=== PATIENT | male | born 1985 | race Hispanic/Latino ===

== ENCOUNTER 2016-09-03 12:31 | Emergency (ER) | payer OTHER ==
[~2016-09-03] VITALS: Ht 185.4 cm; Wt 70.9 kg
[2016-09-03 12:35] VITALS: BP 143/91; RESP 16; O2SAT 98
--- NOTE | 2016-09-03 13:21 | ED.REPORT ---
HPI-General Illness Peds Date of Service Sep 03, 2016 ED Provider: Damon Carlos MD 31 year old male presents to the ER complaining of a foreign body sensation in his throat onset this morning before work. He had cereal for breakfast, but reports that the sensation did not occur until some time after eating. Patient suspects that it is a piece of glass from a chipped mug. He states that he attempted to clear the object by eating chips and gargling water without relief. A coworker noticed that his voice sounded different and encouraged him to seek care. Patient is able to eat and drink without difficulty, but feels as though the foreign body is changing position. He was seen at urgent care earlier today where he received x-rays that came back negative. Nursing Notes Stated Complaint: POSS OBJECT STUCK IN THROAT Chief Complaint: ENT & Mouth Nursing Notes Reviewed: Yes Allergies: Coded Allergies: No Known Allergies (Unverified , 09/03/16) General Time Seen by MD: 12:57 Chief Complaint Other (Foreign Body in Throat) Hx Obtained from: Patient Arrived by: Walk-in Sudden in Onset?: No Onset Occurred: 5 - 8 hours ago Symptom Duration: Since onset Pertinent Negative: Pt denies other symptoms Similar Sx Previous: No Past Medical History Past Medical History None reported Smoking History Unknown if Ever Smoker Ambulatory Status Ambulatory Status: Independent Review of Systems Full Review of Systems Constitutional: Denies: Chills, Fever Ears / Nose / Throat: Reports: Throat pain (Foreign Body Sensation), Denies: Nasal congestion Respiratory: Denies: Irregular breathing, Shortness of breath GI: Denies: Abdominal pain, Nausea, Vomiting Complete sys rev & neg: except as marked. Physical Exam Initial Vital Signs Vital Signs (First) Date Time Temp Pulse Resp B/P Pulse Ox O2 Delivery O2 Flow Rate FiO2 09/03/16 12:35 36.2 104 16 143/91 98 Room Air Initial VS: Reviewed Head / Eyes: Atraumatic, Normocephalic Neck: Supple, Non-tender, Full range of motion Abdomen / GI: Soft, Non-tender, No guarding, No rebound, No distention Extremities: Vascular intact, Neuro intact, No swelling, No tenderness Skin: Warm, Dry, No cyanosis Neurologic: Alert, Oriented, Nonfocal General / Constitutional: Awake, Alert, Well appearing, Well developed, Well hydrated, Well nourished ENT: Airway patent, Mucous membranes moist, Pharynx NL Respiratory / Chest: Breath sounds NL, Breath sounds = bilat, No respiratory distress, No rales, No rhonchi, No wheezing Cardiovascular: Heart rate NL, Heart sounds NL, Peripheral circulation NL Re-Eval/Medical Decision Med Decision/Clinical Course 31-year-old male with foreign body sensation in esophagus after eating Cheerios this morning. He has no dysphagia. His cast with ENT who recommended sending over to the clinic one half block away for evaluation and possible outpatient endoscopy. Patient reports he will go emergently. Re-Evaluation/Progress : Time of Eval: 13:42 Re-Evaluation/Progress Note: Discussed plan to discharge with plan for immediate follow up with ENT. Patient is amenable to the plan. Return precautions given. All other questions addressed. Consultation : Referral / Consult Name: Jordy Garcia MD Consulted with: ENT Call Returned at: 13:35 Credit Charge Authorizer: Will see in office Note: Send patient over now. Counseled Regarding: Diagnosis, Need for follow-up, When/why to return to ED Discharge & Departure Impression: Primary Impression: Esophageal foreign body Disposition: Home Discharge Condition )( All Prior VS Reviewed: Yes Condition: Stable Additional Instructions: Go see Dr. Jordy Garcia, Ear Nose and Throat doctor, immediately at the address listed below. He will be expecting you. Please return to the ER if you are unable to be seen for some reason. Referrals: Mack Mejia MD (PCP) Jordy Garcia MD Attestation Portions of this note were transcribed by Sabino Diaz. I, Dr. Carlos, personally performed the history, physical exam and medical decision-making; I reviewed and confirmed the accuracy of the information in the transcribed note. Signed by: Anthony Swanson, 09/03/2016 at 13:43 copies to: Mack Mejia MD; Jordy Garcia MD, Ben M MD Sep 03, 2016 13:21 SABINO DIAZ Sep 03, 2016 13:29
== END 2016-09-03 13:59 | disposition home or self-care (01) ==
LOC: SED 12:31
DX: T18.108A Unspecified foreign body in esophagus causing other injury, initial encounter (principal); X58.XXXA Exposure to other specified factors, initial encounter; Y93.89 Activity, other specified; Y99.8 Other external cause status; Y92.89 Other specified places as the place of occurrence of the external cause